=== PATIENT | female | born 1965 | race Caucasian/White ===

== ENCOUNTER → 2016-09-04 | Outpatient (CLI) | payer BC ==
[2016-09-04 15:23] VITALS: BP 125/75; PULSE 71; RESP 14; TEMP 97.1; BMI 39.8
--- NOTE | 2016-09-04 16:28 | P.HPBAR ---
Bariatric H&P - History & Physicial H&P Date: 09/04/16 History & Physicial: Visit/CC: bariatric consult Patient initial contact: Initial weight: 105.324 kg Initial weight in pounds: 232.20 Height: 5 ft 4 in Initial BMI: 39.8 Last weight: Current weight: 105.324 kg Current weight in pounds: 232.20 Current BMI: 39.8 [place] body weight (based on NIH guidelines): 54.431 kg Excess body weight loss: 0.0% The patient is a 51 year-old F who presents for Bariatric Assessment. The patient rents today for sleeve gastrectomy constipation. She has had lifetime problems obesity. Her BMI is 40. Past Medical History Past Medical History: Asthma, Hyperlipidemia, Osteoarthritis (OA), Sleep Apnea/ CPAP/BIPAP Additional Past Medical History / Comment(s): degenerative disk disease, sleep apnea (uses C-PAP), hyperlipidemia does not take written Rx because it caused muscle aches, kidney stones, History of Any Multi-Drug Resistant Organisms: None Reported Past Surgical History: Back Surgery, Orthopedic Surgery Additional Past Surgical History / Comment(s): Partial Right knee replacement 2013, synovial cyst on spine led to lower back surgery in November 2015 where bone spurs were removed and 2 bulging discs repaired, x1 (1993), kidney stones removed 2000, rectal polyps removed as a child. Additional Past Anesthesia/Blood Transfusion Reaction / Comm: states that when she had a nerve block for knee replacement the nerve block placed in her groin only lasted 3 hours and she was told that she metabolized the drug too quickly as it should have lasted at least 18 hours. When she had her back surgery in 2015 she did not have any problems. Past Psychological History: Depression Additional Psychological History / Comment(s): takes 50 mg of zoloft daily Smoking Status: Never smoker Past Alcohol Use History: None Reported, Occasional Past Drug Use History: None Reported - Past Family History Father Family Medical History: Cancer, Diabetes Mellitus, Hyperlipidemia, Hypertension Additional Family Medical History / Comment(s): Has had T-Cell leukemia "for years" , Type 2 DM, Mother Family Medical History: CVA/TIA, Hyperlipidemia, Hypertension, Osteoarthritis ( OA) Additional Family Medical History / Comment(s): degenerative disc disease Surgical - Exam Vital Signs Temp Pulse Resp BP 97.1 F L 71 14 125/75 09/04/16 14:55 09/04/16 14:55 09/04/16 14:55 09/04/16 14:55 BMI 40 - General well developed, no distress - Eyes PERRL - ENT normal pinna - Neck no masses - Respiratory normal expansion - Cardiovascular Rhythm: regular - Abdomen Abdomen: soft, non tender Bariatric Assessment & Plan Plan: Morbid obesity with severe comorbidities. The my 40. Patient will be scheduled for EGD. She will be authorized for sleeve gastrectomy Bariatric Checklist Checklist: Plan: Checklist: EGD: 1. Hiatal hernia: 2. H. Pylori: HgbA1c: Vitamin D: Smoking: Never smoker Primary care physician referral: alma laughlin Psychiatry clearance: Cardiology clearance: Sleep study: Diet journal: VTE risk score: VTE risk level: Rehab needs at discharge:
[2016-09-04 16:40] LABS: EKG EKG PERFORMED
[2016-09-04 17:06] LABS: CH 29.6; CHCM 32.3; HCT 38.4 % (34.0-46.0); HDW 3.05; HGB 12.3 gm/dL (11.4-16.0); Hypochromasia Slight; Iron 50 ug/dL (37-170); MCH 29.5 pg (25.0-35.0); MCV 92.1 fL (80.0-100.0); Mean Platelet Volume 6.8; RBC 4.16 m/uL (3.80-5.40); RDW 15.8 % (11.5-15.5); WBC 8.3 k/uL (3.8-10.6)
[2016-09-04 17:15] LABS: % Iron Saturation 15.2 % (20-50); Total Iron Binding Capacity 328 ug/dL (265-497)
== END | disposition home or self-care (01) ==
LOC: BARWHC3 14:08
PROVIDERS: ATTEND Surgery
DX: Z01.818 Encounter for other preprocedural examination (principal); E66.01 Morbid (severe) obesity due to excess calories; Z68.39 Body mass index [BMI] 39.0-39.9, adult; G47.33 Obstructive sleep apnea (adult) (pediatric); Z99.89 Dependence on other enabling machines and devices; K59.09 Other constipation; F32.9 Major depressive disorder, single episode, unspecified; Z79.899 Other long term (current) drug therapy
CPT/HCPCS: 82306; 82728; 83540; 83550; 84443; 85027; 93005; 99201

== ENCOUNTER 2016-09-22 10:39 | Day surgery (SDC) | payer BC ==
[2016-09-19 14:30] VITALS: BMI 39.8
[~2016-09-22 10:39] MED LIST: LACTATED RINGERS 1,000 ML IV SCH
[2016-09-22 11:57] VITALS: RESP 16; TEMP 98
[2016-09-22] MEDS ORDERED: LIDOCAINE 1% 20 ML VIAL (10MG/ML) FOR IV START INTRADERMA ONE (12:19)
[2016-09-22] MEDS ORDERED: LIDOCAINE 1% INJ 10MG/ML (20 ML MDV) ONE (12:58)
[2016-09-22] MEDS ORDERED: PROPOFOL 10 MG/ML 20 ML VIAL IV ONE (12:58)
--- NOTE | 2016-09-22 13:02 | P.GSHP ---
History of Present Illness H&P Date: 09/22/16 Chief Complaint: GERD This a 51-year-old female who presents today for EGD. Patient's had long- standing problems reflux esophagitis. Patient is morbidly obese with a BMI 40. She is also undergoing workup for sleeve gastrectomy. - Constitutional Constitutional: Reports as per HPI Past Medical History Past Medical History: Asthma, Hyperlipidemia, Musculoskeletal Disorder, Osteoarthritis (OA), Sleep Apnea/CPAP/BIPAP Additional Past Medical History / Comment(s): DDD, sleep apnea (uses C-PAP), kidney stones, Hayfever. History of Any Multi-Drug Resistant Organisms: None Reported Past Surgical History: Back Surgery, Orthopedic Surgery Additional Past Surgical History / Comment(s): Partial Right knee replacement 2013, synovial cyst on spine led to lower back surgery in November 2015 where bone spurs were removed and 2 bulging discs repaired, x1, kidney stones removed 2000, rectal polyps removed as a child. Past Anesthesia/Blood Transfusion Reactions: No Reported Reaction, Motion Sickness Additional Past Anesthesia/Blood Transfusion Reaction / Comment(s): states that when she had a nerve block for knee replacement the nerve block placed in her groin only lasted 3 hours and she was told that she metabolized the drug too quickly as it should have lasted at least 18 hours. When she had her back surgery in 2015 she did not have any problems. , Mother has difficulty waking up. Past Psychological History: Depression Additional Psychological History / Comment(s): . Smoking Status: Never smoker Past Alcohol Use History: Occasional Past Drug Use History: None Reported - Past Family History Father Family Medical History: Cancer, Diabetes Mellitus, Hyperlipidemia, Hypertension Additional Family Medical History / Comment(s): Has had T-Cell leukemia "for years" , Type 2 DM, Mother Family Medical History: CVA/TIA, Hyperlipidemia, Hypertension, Osteoarthritis ( OA) Additional Family Medical History / Comment(s): degenerative disc disease Medications and Allergies Home Medications Medication Instructions Recorded Confirmed Type Cetirizine HCl [Zyrtec] 10 mg PO DAILY 09/01/16 09/22/16 History HYDROcodone/APAP 7.5-325MG [[place] 1 tab PO Q6HR PRN 09/01/16 09/22/16 History 7.5-325] Naproxen [Naprosyn] 500 mg PO Q12HR PRN 09/01/16 09/22/16 History Sertraline [Zoloft] 50 mg PO DAILY 09/01/16 09/22/16 History Multivitamin [Multivitamins Adult 1 each PO DAILY 09/04/16 09/22/16 History Gummies] Turmeric Root Extract [Turmeric] 500 mg PO DAILY 09/04/16 09/22/16 History Acetaminophen Tab [Tylenol Tab] 650 mg PO DIRECTED PRN 09/19/16 09/22/16 History Albuterol Inhaler [Ventolin Hfa 1 - 2 puff INHALATION Q6HR PRN MDD 09/19/16 History Inhaler] S Fluticasone/Salmeterol [Advair 1 inhalation PO DIRECTED 09/19/16 09/22/16 History 250-50 Diskus] [place]-3 Fatty Acids/Fish Oil [Fish 1 each PO DAILY 09/19/16 09/22/16 History Oil 1,000 mg Softgel] Allergies Allergy/AdvReac Type Severity Reaction Status Date / Time amoxicillin [From Augmentin] AdvReac Vomiting Verified 09/22/16 12:00 clavulanic acid AdvReac Vomiting Verified 09/22/16 12:00 [From Augmentin] Surgical - Exam Vital Signs Temp Pulse Resp BP Pulse Ox 98.0 F 69 16 116/61 100 09/22/16 11:49 09/22/16 11:49 09/22/16 11:49 09/22/16 11:49 09/22/16 11:49 - General well developed, no distress - Eyes PERRL - ENT normal pinna - Neck no masses - Respiratory normal expansion - Cardiovascular Rhythm: regular - Abdomen Abdomen: soft, non tender Assessment and Plan Plan: GERD. We'll perform EGD.
--- NOTE | 2016-09-22 13:15 | P.OP ---
Date of Procedure: 09/22/16 Preoperative Diagnosis: GERD Morbid obesity Postoperative Diagnosis: Mild antral gastritis Minimal hiatal hernia Esophageal biopsy minimal esophagitis Procedure(s) Performed: EGD Anesthesia: MAC Surgeon: Simon Huitron Pathology: other (Antrum, esophagus) Condition: stable Disposition: PACU Description of Procedure: The patient's placed on the endoscopy table in the lateral position. She received IV sedation. The gastroscope placed oropharynx and passed into the esophagus and into the stomach. Scope was then passed into the duodenum. The first and second portion of the duodenum. Normal. Scope was then brought back the antrum this appeared mildly inflamed. A biopsies performed. Scope was then retroflexed and remainder stomach appeared normal. There was a small hiatal hernia. The GE junction was at 40 cm. The distal esophagus appeared mildly inflamed a biopsies performed. The proximal esophagus appeared normal. The scope was then withdrawn from the patient.
[2016-09-22 13:31] VITALS: BP 109/56; PULSE 71
== END 2016-09-22 13:55 | disposition home or self-care (01) ==
LOC: ORWHC2ENDO 10:39
PROVIDERS: ATTEND Surgery
DX: K21.0 Gastro-esophageal reflux disease with esophagitis (principal); K29.50 Unspecified chronic gastritis without bleeding; B96.81 Helicobacter pylori [H. pylori] as the cause of diseases classified elsewhere; K44.9 Diaphragmatic hernia without obstruction or gangrene; E78.5 Hyperlipidemia, unspecified; J45.909 Unspecified asthma, uncomplicated; M19.90 Unspecified osteoarthritis, unspecified site; G47.33 Obstructive sleep apnea (adult) (pediatric); F32.9 Major depressive disorder, single episode, unspecified; E66.01 Morbid (severe) obesity due to excess calories; Z68.41 Body mass index [BMI] 40.0-44.9, adult; Z88.1 Allergy status to other antibiotic agents; Z79.1 Long term (current) use of non-steroidal anti-inflammatories (NSAID); Z79.51 Long term (current) use of inhaled steroids; Z79.899 Other long term (current) drug therapy
CPT/HCPCS: 43239; 88305; 88342; J2001; J2704

== ENCOUNTER → 2016-10-02 | Outpatient (CLI) | payer BC ==
[2016-10-02 15:18] VITALS: BP 134/61; PULSE 69; TEMP 98.3; BMI 39.6
--- NOTE | 2016-10-02 15:32 | P.HPBAR ---
Bariatric H&P - History & Physicial H&P Date: 10/02/16 History & Physicial: Visit/CC: follow up visit to discuss egd result Patient initial contact: Initial weight: 105.324 kg Initial weight in pounds: 232.20 Height: 5 ft 4 in Initial BMI: 39.8 Last weight: Current weight: 104.644 kg Current weight in pounds: 230.70 Current BMI: 39.6 [place] body weight (based on NIH guidelines): 54.431 kg Excess body weight loss: 1.3% The patient is a 51 year-old F who presents for Bariatric Assessment. Patient' s had her EGD report reviewed. She is evidence of H. pylori. She states she feels well. Has no abdominal complaints. Past Medical History Past Medical History: Asthma, Hyperlipidemia, Musculoskeletal Disorder, Osteoarthritis (OA), Sleep Apnea/CPAP/BIPAP Additional Past Medical History / Comment(s): DDD, sleep apnea (uses C-PAP), kidney stones, Hayfever. History of Any Multi-Drug Resistant Organisms: None Reported Past Surgical History: Back Surgery, Orthopedic Surgery Additional Past Surgical History / Comment(s): Partial Right knee replacement 2013, synovial cyst on spine led to lower back surgery in November 2015 where bone spurs were removed and 2 bulging discs repaired, x1, kidney stones removed 2000, rectal polyps removed as a child. Past Anesthesia/Blood Transfusion Reactions: No Reported Reaction, Motion Sickness Additional Past Anesthesia/Blood Transfusion Reaction / Comm: states that when she had a nerve block for knee replacement the nerve block placed in her groin only lasted 3 hours and she was told that she metabolized the drug too quickly as it should have lasted at least 18 hours. When she had her back surgery in 2015 she did not have any problems. , Mother has difficulty waking up. Past Psychological History: Depression Additional Psychological History / Comment(s): . Smoking Status: Never smoker Past Alcohol Use History: Occasional Past Drug Use History: None Reported - Past Family History Father Family Medical History: Cancer, Diabetes Mellitus, Hyperlipidemia, Hypertension Additional Family Medical History / Comment(s): Has had T-Cell leukemia "for years" , Type 2 DM, Mother Family Medical History: CVA/TIA, Hyperlipidemia, Hypertension, Osteoarthritis ( OA) Additional Family Medical History / Comment(s): degenerative disc disease Surgical - Exam Vital Signs Temp Pulse BP 98.3 F 69 134/61 10/02/16 15:13 10/02/16 15:13 10/02/16 15:13 - General well developed, no distress - Eyes PERRL - ENT normal pinna - Neck no masses - Respiratory normal expansion - Cardiovascular Rhythm: regular - Abdomen Abdomen: soft, non tender Bariatric Assessment & Plan Plan: Patient was given a prescription for Prevpac. She is still awaiting insurance authorization for her gastric sleeve. Patient has a good understanding of sleeve gastrectomy. We went over the risks and benefits of the procedure. Patient will follow-up in one month. Bariatric Checklist Checklist: Plan: Checklist: EGD: 1. Hiatal hernia: 2. H. Pylori: HgbA1c: Vitamin D: Smoking: Never smoker Primary care physician referral: alma laughlin Psychiatry clearance: Cardiology clearance: Sleep study: Diet journal: VTE risk score: VTE risk level: Rehab needs at discharge:
== END | disposition home or self-care (01) ==
LOC: BARWHC3 14:30
PROVIDERS: ATTEND Surgery
DX: Z01.818 Encounter for other preprocedural examination (principal); G47.30 Sleep apnea, unspecified; Z99.89 Dependence on other enabling machines and devices; Z68.39 Body mass index [BMI] 39.0-39.9, adult; A48.8 Other specified bacterial diseases
CPT/HCPCS: 99211

== ENCOUNTER → 2016-10-23 | Outpatient (CLI) | payer BC ==
[2016-10-23 11:59] VITALS: BMI 40.1
== END | disposition home or self-care (01) ==
LOC: BARWHC3 08:43
PROVIDERS: ATTEND Surgery
DX: E66.01 Morbid (severe) obesity due to excess calories (principal)
CPT/HCPCS: 97804

== ENCOUNTER 2016-11-22 07:45 | Inpatient (IN) | payer BC ==
[~2016-11-22 07:45] MED LIST changes: +DEXAMETHASONE SOD PHOSPHATE 10 MG/ML 1 ML VIAL IV ONE; +ENOXAPARIN 40 MG/0.4 ML SYRINGE SQ ONE; -LACTATED RINGERS 1,000 ML IV SCH; +MIDAZOLAM 2 MG/2 ML VIAL IV PRN; +ONDANSETRON 4 MG/2 ML VIAL IVP ONE; +SCOPOLAMINE 1.5MG/72HR PATCH TRANSDERM ONE; +ceFAZolin 2 GM in SODIUM CHLORIDE 0.9% 100 ML IVPB ONE
[2016-11-22] MEDS ORDERED: ACETAMINOPHEN IV (For NPO) 1,000 MG in SALINE 1 100ML.BAG IVPB STA (10:24)
--- NOTE | 2016-11-22 10:26 | P.GSHP ---
History of Present Illness H&P Date: 11/22/16 Chief Complaint: Morbid obesity This a 51-year-old female who presents today for laparoscopic sleeve gastrectomy. Patient's had lifetime problems obesity. She has developed severe : Bradycardia is related to morbid obesity. Patient is aware the risks of surgery including conversion to the open procedure and injury to the stomach, liver and spleen. She is also aware the risk of gastric staple line disruption , bleeding perforation - Constitutional Constitutional: Reports as per HPI Past Medical History Past Medical History: Asthma, Hyperlipidemia, Musculoskeletal Disorder, Osteoarthritis (OA), Sleep Apnea/CPAP/BIPAP Additional Past Medical History / Comment(s): DDD, sleep apnea (uses C-PAP), kidney stones., Back and Knee pain. History of Any Multi-Drug Resistant Organisms: None Reported Past Surgical History: Back Surgery, Orthopedic Surgery Additional Past Surgical History / Comment(s): Partial Right knee replacement 2013, synovial cyst on spine led to lower back surgery in November 2015 where bone spurs were removed and 2 bulging discs repaired, , kidney stones removed 2000, rectal polyps removed as a child. Past Anesthesia/Blood Transfusion Reactions: Motion Sickness Additional Past Anesthesia/Blood Transfusion Reaction / Comment(s): states that when she had a nerve block for knee replacement the nerve block placed in her groin only lasted 3 hours and she was told that she metabolized the drug too quickly as it should have lasted at least 18 hours. When she had her back surgery in 2015 she did not have any problems. , Mother has difficulty waking up. Past Psychological History: Anxiety, Depression Additional Psychological History / Comment(s): . Smoking Status: Never smoker Past Alcohol Use History: Occasional Past Drug Use History: None Reported - Past Family History Father Family Medical History: Cancer, Diabetes Mellitus, Hyperlipidemia, Hypertension Additional Family Medical History / Comment(s): Has had T-Cell leukemia "for years" , Type 2 DM, Mother Family Medical History: CVA/TIA, Hyperlipidemia, Hypertension, Osteoarthritis ( OA) Additional Family Medical History / Comment(s): degenerative disc disease Medications and Allergies Home Medications Medication Instructions Recorded Confirmed Type Cetirizine HCl [Zyrtec] 10 mg PO DAILY 09/01/16 11/22/16 History HYDROcodone/APAP 7.5-325MG [[place] 1 tab PO Q6HR PRN 09/01/16 11/22/16 History 7.5-325] Naproxen [Naprosyn] 500 mg PO Q12HR PRN 09/01/16 11/22/16 History Sertraline [Zoloft] 50 mg PO DAILY 09/01/16 11/22/16 History Multivitamin [Multivitamins Adult 1 each PO DAILY 09/04/16 11/22/16 History Gummies] Turmeric Root Extract [Turmeric] 500 mg PO DAILY 09/04/16 11/22/16 History Albuterol Inhaler [Ventolin Hfa 1 - 2 puff INHALATION Q6HR PRN 09/19/16 History Inhaler] Fluticasone/Salmeterol [Advair 1 inhalation PO BID 09/19/16 11/22/16 History 250-50 Diskus] [place]-3 Fatty Acids/Fish Oil [Fish 1 each PO DAILY 09/19/16 11/22/16 History Oil 1,000 mg Softgel] Calcium With Vitamin D 1 tab PO DAILY 11/20/16 11/22/16 History Iron With Vitamin C 1 tab PO DAILY 11/20/16 11/22/16 History Vitamin B-12 Nasal [place] 500 mcg INHALATION DAILY 11/20/16 11/22/16 History Allergies Allergy/AdvReac Type Severity Reaction Status Date / Time amoxicillin [From Augmentin] AdvReac Vomiting Verified 11/22/16 10:13 clavulanic acid AdvReac Vomiting Verified 11/22/16 10:13 [From Augmentin] Surgical - Exam Vital Signs Temp Pulse Resp BP Pulse Ox 97.5 F L 73 16 104/63 98 11/22/16 10:21 11/22/16 10:21 11/22/16 10:21 11/22/16 10:21 11/22/16 10:21 - General well developed, no distress - Eyes PERRL - ENT normal pinna - Neck no masses - Respiratory normal expansion - Cardiovascular Rhythm: regular - Abdomen Abdomen: soft, non tender Assessment and Plan Plan: Morbid obesity. We'll perform laparoscopic sleeve gastrectomy
[2016-11-22] MEDS ORDERED: LIDOCAINE 1% 20 ML VIAL (10MG/ML) FOR IV START INTRADERMA ONE (10:31)
[2016-11-22] MEDS: LACTATED RINGERS 1,000 ML IV SCH (10:31)
[2016-11-22] MEDS ORDERED: SUCCINYLCHOLINE CHLORIDE 100 MG/5 ML SYR IV ONE (11:06)
[2016-11-22] MEDS ORDERED: NEOSTIGMINE 1 MG/ML 10 ML VIAL ONE (11:06)
[2016-11-22] MEDS ORDERED: MIDAZOLAM 2 MG/2 ML VIAL ONE (11:06)
[2016-11-22] MEDS ORDERED: LIDOCAINE 1% INJ 10MG/ML (20 ML MDV) ONE (11:06)
[2016-11-22] MEDS ORDERED: HYDROmorphone (PF) 1 MG/ML ONE (11:06)
[2016-11-22] MEDS ORDERED: GLYCOPYRROLATE 0.2 MG/ML 2 ML VIAL ONE (11:06)
[2016-11-22] MEDS ORDERED: PROPOFOL 10 MG/ML 20 ML VIAL IV ONE (11:06)
[2016-11-22] MEDS ORDERED: fentaNYL (PF) 50 MCG/ML 2 ML AMP ONE (11:06)
[2016-11-22] MEDS ORDERED: ROCURONIUM BROMIDE 10 MG/ML 10 ML VIAL IV ONE (11:06)
[2016-11-22] MEDS ORDERED: METHYLENE BLUE 15 MG in DEXTROSE 5% IN WATER 500 ML IRRIGATION ONE ×2 (11:24)
[2016-11-22] MEDS ORDERED: BUPIVACAIN-EPI 0.25%-1:200,000 30 ML VIAL SQ ONE ×2 (11:28)
[2016-11-22] MEDS ORDERED: ACETAMINOPHEN IV (For NPO) 1,000 MG/100 ML VIAL IV PRN (12:19)
[2016-11-22] MEDS ORDERED: NALOXONE 0.4 MG/ML 1 ML VIAL IV PRN (12:19)
[2016-11-22] MEDS ORDERED: LACTATED RINGERS 1,000 ML IV ONE (12:20)
--- NOTE | 2016-11-22 12:24 | P.OP ---
Date of Procedure: 11/22/16 Preoperative Diagnosis: Morbid obesity BMI 37 Postoperative Diagnosis: Morbid obesity Procedure(s) Performed: Laparoscopic sleeve gastrectomy Laparoscopic repair of hiatal hernia Anesthesia: LOIS Surgeon: Simon Huitron Estimated Blood Loss (ml): 10 Pathology: other (Gastric remnant) Condition: stable Disposition: PACU Description of Procedure: The patient was placed on the operating room table in the supine position. She received general anesthesia and then was placed in dorsal lithotomy position. Her abdomen was prepped and draped in sterile fashion. The skin incision sites were anesthetized 1% local Xylocaine. And then the skin was incised with an 11 blade in the left lateral position. Using a blade less trocar under direct visualization the peritoneal cavity was entered. The abdomen was insufflated and then a 5 mm laparoscope was placed into the peritoneal cavity. A 5 mm trocar was placed in the right epigastric, and right lateral position. A 15 mm trocar was placed in the supra-umbilical position and another 5 mm trocar was placed in the left lateral position. The left lateral lobe of the liver was retracted. The stomach was visualized. The greater curvature of the stomach was then dissected using the Harmonic scissors. The hiatus was dissected. There appeared to be a hiatal hernia. After the hiatus was dissected the hiatal hernia was repaired using 2-0 Ethibond suture in the retroesophageal position. The dissection occurred approximately 5 cm from the pylorus to the level of the left cindy. There was no hiatal hernia seen. At this point a 40- Thai bougie dilator was placed the oropharynx and passed into the esophagus and into the stomach by the FILLER MACHINE OPERATOR. The sleeve gastrectomy was performed by using the powered echelon stapler with a seam guard buttress material. Sequential firings of the stapler were performed. The gastric remnant was then brought out through the 15 mm trocar site. The dilator was withdrawn. And a orogastric tube was replaced into the stomach. The stomach was insufflated with 200 mL of methylene blue normal saline. There was no evidence of extravasation. The abdomen was irrigated there is no bleeding seen. The Saúl -Georgiana device was used to close the 15 mm trocar with 0 Vicryl. Skin was closed with interrupted 3-0 Monocryl sutures once the trochars withdrawn. Dermabond dressing was applied. Patient was sent to recovery in stable condition.
[2016-11-22] MEDS: HYDROmorphone 1 MG/ML 1 ML SYRINGE IVP PRN ×4 (13:05→22:47)
[2016-11-22 13:17] VITALS: RESP 16
[2016-11-22] MEDS ORDERED: ALBUTEROL NEBULIZED 2.5 MG/3 ML INHALATION PRN (14:10)
[2016-11-22] MEDS: 0.9% NACL WITH KCL 20 MEQ/L 1,000 ML IV SCH ×2 (15:05→22:34)
[2016-11-22 15:18] VITALS: BMI 37.1
[2016-11-22] MEDS: ALBUTEROL NEBULIZED 2.5 MG/3 ML INHALATION SCH ×2 (15:27→19:42)
[2016-11-22] MEDS: KETOROLAC 30 MG/ML 1 ML VIAL IVP SCH (18:15)
[2016-11-22] MEDS: SYMBICORT 80-4.5 MCG INHALER INHALATION SCH (19:51)
[2016-11-22] MEDS: ACETAMINOPHEN IV (For NPO) 1,000 MG in EMPTY BAG 1 BAG IVPB PRN (20:35)
[2016-11-23] MEDS: KETOROLAC 30 MG/ML 1 ML VIAL IVP SCH ×3 (00:42→14:23)
[2016-11-23 02:14] VITALS: TEMP 98.1
[2016-11-23] MEDS: LACTATED RINGERS 1,000 ML IV SCH (03:22)
[2016-11-23] MEDS: 0.9% NACL WITH KCL 20 MEQ/L 1,000 ML IV SCH (03:33)
[2016-11-23] MEDS: ACETAMINOPHEN IV (For NPO) 1,000 MG in EMPTY BAG 1 BAG IVPB PRN (04:07)
[2016-11-23] MEDS: HYDROmorphone 1 MG/ML 1 ML SYRINGE IVP PRN (04:16)
[2016-11-23 07:24] LABS: Basophils % (A) 0 %; CHCM 32.7; Eosinophils % (A) 0 %; HCT 33.3 % (34.0-46.0); HDW 3.23; Luc % (Auto) 2; Lymphocytes # (A) 1.2 k/uL (1.0-4.8); Lymphocytes % (A) 20 %; MCH 30.4 pg (25.0-35.0); MCV 92.2 fL (80.0-100.0); Mean Platelet Volume 6.9; Monocytes # (A) 0.3 k/uL (0-1.0); Monocytes % (A) 5 %; Neutrophils # (A) 4.3 k/uL (1.3-7.7); Neutrophils % (A) 73 %; RBC 3.61 m/uL (3.80-5.40); RDW 15.6 % (11.5-15.5); WBC 5.9 k/uL (3.8-10.6); WBC (Perox) 5.87
[2016-11-23 07:45] LABS: Anion Gap 10 mmol/L; Blood Urea Nitrogen 11 mg/dL (7-17); Calcium 8.6 mg/dL (8.4-10.2); Carbon Dioxide 18 mmol/L (22-30); Chloride 112 mmol/L (98-107); Magnesium 1.8 mg/dL (1.6-2.3); Non-African American GFR(MDRD) >60 (>60 ml/min/1.73 sqM); Phosphorous 3.4 mg/dL (2.5-4.5); Potassium 4.6 mmol/L (3.5-5.1); Sodium 140 mmol/L (137-145)
[2016-11-23] MEDS: ALBUTEROL NEBULIZED 2.5 MG/3 ML INHALATION SCH ×3 (08:26→15:44)
[2016-11-23] MEDS: SYMBICORT 80-4.5 MCG INHALER INHALATION SCH (08:27)
[2016-11-23] MEDS ORDERED: ACETAMINOPHEN IV (For NPO) 1,000 MG in EMPTY BAG 1 BAG IVPB ONE (09:00)
[2016-11-23] MEDS ORDERED: ENOXAPARIN 40 MG/0.4 ML SYRINGE SQ SCH (09:00)
[2016-11-23] MEDS ORDERED: SERTRALINE 50 MG TAB PO SCH (09:00)
[2016-11-23] MEDS ORDERED: LORATADINE 10 MG TAB PO SCH (09:00)
[2016-11-23] MEDS: HYDROcodone/APAP 7.5-325MG 1 EACH TAB PO PRN ×2 (10:15→16:15)
--- NOTE | 2016-11-23 11:18 | FL ---
EXAMINATION TYPE: FL UGI DATE OF EXAM: 11/23/2016 10:04 AM COMPARISON: NONE HISTORY: Post gastric sleeve TECHNIQUE: A single contrast UGI study is performed. FINDINGS: Contrast passes from the distal esophagus through the gastric sleeve with out significant h esitancy. No extravasation of contrast is evident. No free air is noted during this examination. Overhead radiographs were obtained which are unremarkable. IMPRESSIONS: 1. Normal post gastric sleeve without obstruction or hesitancy. No extravasation.
[2016-11-23 14:56] VITALS: BP 117/58
[2016-11-23 15:48] VITALS: PULSE 71
--- NOTE | 2016-11-23 18:03 | P.DS ---
Providers Date of admission: 11/22/16 09:48 Expected date of discharge: 11/23/16 Attending physician: Simon Huitron Consults: 11/22/16 13:00 Consult Physician Routine Consulting Provider: Jonathan Booth Consult Reason/Comments: Medical management Do you want consulting provider notified?: Yes Primary care physician: [facility] Hospital Course: Patient is a 51-year-old female with a medical history significant for morbid obesity having failed conservative treatment. Patient presented for elective laparoscopic sleeve gastrectomy. Patient also underwent laparoscopic repair of hiatal hernia. Patient tolerated procedure well. Upper GI series post surgery with no evidence of obstruction or leak. Patient had an uneventful postoperative recovery. Patient was deemed stable for discharge to home with close follow-up in the outpatient setting. Discharge diagnoses: 1. Morbid obesity status post laparoscopic sleeve gastrectomy. 2. Hiatal hernia status post laparoscopic hiatal hernia repair. The above impression and plan have been discussed and directed by Dr. Huitron. Martha CORDOVA acting as scribe for Dr. Huitron. Pertinent Studies: Upper GI series Procedures: Laparoscopic sleeve gastrectomy. Laparoscopic repair of hiatal hernia. Patient Condition at Discharge: Good Plan - Discharge Summary New Discharge Prescriptions: Docusate [Colace] 100 mg PO BID #20 capsule HYDROcodone/APAP 7.5-325MG [[place] 7.5-325] 1 tab PO Q6HR PRN #28 tab PRN Reason: Pain Ondansetron Odt [Zofran ODT] 8 mg PO Q8HR #20 tab Sucralfate [Carafate] 1 gm PO TID #90 tablet Discharge Medication List Cetirizine HCl [Zyrtec] 10 mg PO DAILY 09/01/16 [History] Sertraline [Zoloft] 50 mg PO DAILY 09/01/16 [History] Multivitamin [Multivitamins Adult Gummies] 1 tab PO DAILY 09/04/16 [History] Turmeric Root Extract [Turmeric] 500 mg PO DAILY 09/04/16 [History] Albuterol Inhaler [Ventolin Hfa Inhaler] 1 - 2 puff INHALATION RT-Q6H PRN [History] Fluticasone/Salmeterol [Advair 250-50 Diskus] 1 inhalation PO RT-BID 09/19/16 [ History] [place]-3 Fatty Acids/Fish Oil [Fish Oil 1,000 mg Softgel] 1 cap PO DAILY [History] Calcium With Vitamin D 1 tab PO DAILY 11/20/16 [History] Iron With Vitamin C 1 tab PO DAILY 11/20/16 [History] Vitamin B-12 Nasal [place] 500 mcg INHALATION DAILY 11/20/16 [History] Ondansetron Odt [Zofran ODT] 8 mg PO Q8HR #20 tab 11/22/16 [Rx] Sucralfate [Carafate] 1 gm PO TID #90 tablet 11/22/16 [Rx] Docusate [Colace] 100 mg PO BID #20 capsule 11/23/16 [Rx] HYDROcodone/APAP 7.5-325MG [[place] 7.5-325] 1 tab PO Q6HR PRN #28 tab 11/23/16 [ Rx] Omeprazole [PriLOSEC] 20 mg PO AC-BID #42 cap 11/23/16 [Rx] Follow up Appointment(s)/Referral(s): Troy Vázquez MD [Primary Care Provider] - 11/28/16 10:30 am Simon Huitron MD [STAFF PHYSICIAN] - 12/04/16 1:10 pm (In the bariatric center ) Patient Instructions/Handouts: Laparoscopic Sleeve Gastrectomy (DC) Activity/Diet/Wound Care/Special Instructions: No heavy lifting, pushing, or pulling items greater than 10 pounds. Bariatric diet as previously directed. No caffeinated beverages or straws. Shower daily, no soaking in bath tubs, pools, or hot tubs. No driving while taking pain medication. Notify surgeon with any signs or symptoms of infection, increased pain, or not tolerating diet. Discharge Disposition: HOME SELF-CARE
== END 2016-11-23 17:21 | disposition home or self-care (01) | DRG 621 ==
LOC: 2ORWHC 09:48 → 3SUR 12:26
PROVIDERS: ADMIT Surgery; ATTEND Surgery
PROC: 0BQS4ZZ (ICD-10-PCS; 2016-11-22)
PROC: 0BQR4ZZ (ICD-10-PCS; 2016-11-22)
PROC: 0DB64Z3 Excision of Stomach, Percutaneous Endoscopic Approach, Vertical (ICD-10-PCS; principal; 2016-11-22 12:05)
DX: E66.01 Morbid (severe) obesity due to excess calories (principal); R00.1 Bradycardia, unspecified; K44.9 Diaphragmatic hernia without obstruction or gangrene; G47.33 Obstructive sleep apnea (adult) (pediatric); J45.909 Unspecified asthma, uncomplicated; F32.9 Major depressive disorder, single episode, unspecified; E78.5 Hyperlipidemia, unspecified; M25.569 Pain in unspecified knee; M19.90 Unspecified osteoarthritis, unspecified site; M54.9 Dorsalgia, unspecified; F41.9 Anxiety disorder, unspecified; Z80.6 Family history of leukemia; Z83.3 Family history of diabetes mellitus; Z82.49 Family history of ischemic heart disease and other diseases of the circulatory system; Z68.37 Body mass index [BMI] 37.0-37.9, adult; Z79.899 Other long term (current) drug therapy; Z87.442 Personal history of urinary calculi; Z96.651 Presence of right artificial knee joint; Z88.1 Allergy status to other antibiotic agents; Z88.0 Allergy status to penicillin; Z87.19 Personal history of other diseases of the digestive system; Z79.1 Long term (current) use of non-steroidal anti-inflammatories (NSAID); Z79.891 Long term (current) use of opiate analgesic; Z79.51 Long term (current) use of inhaled steroids; Z71.3 Dietary counseling and surveillance; Z82.3 Family history of stroke
CPT/HCPCS: 74240; 80051; 82310; 82565; 83735; 84100; 84520; 85025; 88307; 88342; 94640; 94760; 94762

== ENCOUNTER → 2016-12-04 | Outpatient (CLI) | payer BC ==
[2016-12-04 13:25] VITALS: BP 107/62; PULSE 65; RESP 15; TEMP 97.9; BMI 36.1
--- NOTE | 2016-12-04 16:58 | P.HPBAR ---
Bariatric H&P - History & Physicial H&P Date: 12/04/16 History & Physicial: Visit/CC: sleeve f/u (11/22/16) Patient initial contact: Initial weight: 105.324 kg Initial weight in pounds: 232.20 Height: 5 ft 4 in Initial BMI: 39.8 Last weight: Current weight: 95.617 kg Current weight in pounds: 210.80 Current BMI: 36.1 [place] body weight (based on NIH guidelines): 54.431 kg Excess body weight loss: 19.0% The patient is a 51 year-old F who presents for Bariatric Assessment. Patient presents for sleeve gastrectomy fall. She is doing quite well. She states that she feels her restriction has slightly decreased. Past Medical History Past Medical History: Asthma, Hyperlipidemia, Osteoarthritis (OA), Sleep Apnea/ CPAP/BIPAP Additional Past Medical History / Comment(s): DDD, sleep apnea (uses C-PAP), kidney stones., Back and Knee pain. History of Any Multi-Drug Resistant Organisms: None Reported Past Surgical History: Back Surgery, Orthopedic Surgery Additional Past Surgical History / Comment(s): Partial Right knee replacement 2013, synovial cyst on spine led to lower back surgery in November 2015 where bone spurs were removed and 2 bulging discs repaired, , kidney stones removed 2000, rectal polyps removed as a child. Past Anesthesia/Blood Transfusion Reactions: Motion Sickness Additional Past Anesthesia/Blood Transfusion Reaction / Comm: states that when she had a nerve block for knee replacement the nerve block placed in her groin only lasted 3 hours and she was told that she metabolized the drug too quickly as it should have lasted at least 18 hours. When she had her back surgery in 2015 she did not have any problems. , Mother has difficulty waking up. Past Psychological History: Anxiety, Depression Additional Psychological History / Comment(s): . Smoking Status: Never smoker Past Alcohol Use History: Occasional Past Drug Use History: None Reported - Past Family History Father Family Medical History: Cancer, Diabetes Mellitus, Hyperlipidemia, Hypertension Additional Family Medical History / Comment(s): Has had T-Cell leukemia "for years" , Type 2 DM, Mother Family Medical History: CVA/TIA, Hyperlipidemia, Hypertension, Osteoarthritis ( OA) Additional Family Medical History / Comment(s): degenerative disc disease Surgical - Exam Vital Signs Temp Pulse Resp BP 97.9 F 65 15 107/62 12/04/16 13:08 12/04/16 13:08 12/04/16 13:08 12/04/16 13:08 - General well developed, no distress - Eyes PERRL - ENT normal pinna - Neck no masses - Respiratory normal expansion - Cardiovascular Rhythm: regular - Abdomen Abdomen: soft, non tender Bariatric Assessment & Plan Plan: Status post sleeve gastric and. Patient is able well. She'll follow-up in 2 weeks. Bariatric Checklist Checklist: Plan: Checklist: EGD: 1. Hiatal hernia: 2. H. Pylori: HgbA1c: Vitamin D: Smoking: Never smoker Primary care physician referral: alma laughlin Psychiatry clearance: Cardiology clearance: Sleep study: Diet journal: VTE risk score: VTE risk level: Rehab needs at discharge:
== END ==
LOC: BARWHC3 13:04
PROVIDERS: ATTEND Surgery
DX: Z48.815 Encounter for surgical aftercare following surgery on the digestive system (principal); Z98.84 Bariatric surgery status
CPT/HCPCS: 97803; 99211

== ENCOUNTER → 2017-01-01 | Outpatient (CLI) | payer BC ==
[2017-01-01 14:21] VITALS: PULSE 67; TEMP 98.3; BMI 33.6
--- NOTE | 2017-01-01 14:49 | P.HPBAR ---
Bariatric H&P - History & Physicial H&P Date: 01/01/17 History & Physicial: Visit/CC: six week follow up Patient initial contact: Initial weight: 105.324 kg Initial weight in pounds: 232.20 Height: 5 ft 4 in Initial BMI: 39.8 Last weight: Current weight: 88.904 kg Current weight in pounds: 196.00 Current BMI: 33.6 [place] body weight (based on NIH guidelines): 54.431 kg Excess body weight loss: 32.2% The patient is a 51 year-old F who presents for Bariatric Assessment. Patient presents for sleeve follow-up. She is doing quite well. She is lost approximately 15 pounds last visit. She has minimal GERD symptoms. Past Medical History Past Medical History: Asthma, Hyperlipidemia, Osteoarthritis (OA), Sleep Apnea/ CPAP/BIPAP Additional Past Medical History / Comment(s): DDD, sleep apnea (uses C-PAP), kidney stones., Back and Knee pain. History of Any Multi-Drug Resistant Organisms: None Reported Past Surgical History: Back Surgery, Orthopedic Surgery Additional Past Surgical History / Comment(s): Partial Right knee replacement 2013, synovial cyst on spine led to lower back surgery in November 2015 where bone spurs were removed and 2 bulging discs repaired, , kidney stones removed 2000, rectal polyps removed as a child. Past Anesthesia/Blood Transfusion Reactions: Motion Sickness Additional Past Anesthesia/Blood Transfusion Reaction / Comm: states that when she had a nerve block for knee replacement the nerve block placed in her groin only lasted 3 hours and she was told that she metabolized the drug too quickly as it should have lasted at least 18 hours. When she had her back surgery in 2015 she did not have any problems. , Mother has difficulty waking up. Past Psychological History: Anxiety, Depression Additional Psychological History / Comment(s): . Smoking Status: Never smoker Past Alcohol Use History: Occasional Past Drug Use History: None Reported - Past Family History Father Family Medical History: Cancer, Diabetes Mellitus, Hyperlipidemia, Hypertension Additional Family Medical History / Comment(s): Has had T-Cell leukemia "for years" , Type 2 DM, Mother Family Medical History: CVA/TIA, Hyperlipidemia, Hypertension, Osteoarthritis ( OA) Additional Family Medical History / Comment(s): degenerative disc disease Surgical - Exam Vital Signs Temp Pulse 98.3 F 67 01/01/17 14:19 01/01/17 14:19 - General well developed, no distress - Eyes PERRL - ENT normal pinna - Neck no masses - Respiratory normal expansion - Cardiovascular Rhythm: regular - Abdomen Abdomen: soft, non tender Bariatric Assessment & Plan Plan: Status post a gastric. Patient still quite well. Her GERD symptoms are minimal we be observed. She'll follow-up in one month. Bariatric Checklist Checklist: Plan: Checklist: EGD: 1. Hiatal hernia: 2. H. Pylori: HgbA1c: Vitamin D: Smoking: Never smoker Primary care physician referral: alma laughlin Psychiatry clearance: Cardiology clearance: Sleep study: Diet journal: VTE risk score: VTE risk level: Rehab needs at discharge:
== END | disposition home or self-care (01) ==
LOC: BARWHC3 14:18
PROVIDERS: ATTEND Surgery
DX: Z09 Encounter for follow-up examination after completed treatment for conditions other than malignant neoplasm (principal); E78.5 Hyperlipidemia, unspecified; M19.90 Unspecified osteoarthritis, unspecified site; J45.909 Unspecified asthma, uncomplicated; F41.9 Anxiety disorder, unspecified; F32.9 Major depressive disorder, single episode, unspecified; Z98.84 Bariatric surgery status
CPT/HCPCS: 97803; 99211

== ENCOUNTER → 2017-02-26 | Outpatient (CLI) | payer BC ==
[2017-02-26 14:07] VITALS: BP 143/76; PULSE 60; RESP 16; TEMP 98.5; BMI 31.4
--- NOTE | 2017-02-26 16:41 | P.HPBAR ---
Bariatric H&P - History & Physicial H&P Date: 02/26/17 History & Physicial: Visit/CC: sleeve follow-up Patient initial contact: Initial weight: 105.324 kg Initial weight in pounds: 232.20 Height: 5 ft 4 in Initial BMI: 39.8 Last weight: 196 Current weight: 83.036 kg Current weight in pounds: 183.00 Current BMI: 31.4 [place] body weight (based on NIH guidelines): 54.431 kg Excess body weight loss: 43.8% The patient is a 51 year-old F who presents for Bariatric Assessment. The patient presents today for sleeve gastrectomy fall. She feels quite well. She' s had some minimal GERD symptoms. Past Medical History Past Medical History: Asthma, Hyperlipidemia, Osteoarthritis (OA), Sleep Apnea/ CPAP/BIPAP Additional Past Medical History / Comment(s): DDD, sleep apnea (uses C-PAP), kidney stones., Back and Knee pain. History of Any Multi-Drug Resistant Organisms: None Reported Past Surgical History: Back Surgery, Orthopedic Surgery Additional Past Surgical History / Comment(s): Partial Right knee replacement 2013, synovial cyst on spine led to lower back surgery in November 2015 where bone spurs were removed and 2 bulging discs repaired, , kidney stones removed 2000, rectal polyps removed as a child. Past Anesthesia/Blood Transfusion Reactions: Motion Sickness Additional Past Anesthesia/Blood Transfusion Reaction / Comm: states that when she had a nerve block for knee replacement the nerve block placed in her groin only lasted 3 hours and she was told that she metabolized the drug too quickly as it should have lasted at least 18 hours. When she had her back surgery in 2015 she did not have any problems. , Mother has difficulty waking up. Smoking Status: Never smoker - Past Family History Father Family Medical History: Cancer, Diabetes Mellitus, Hyperlipidemia, Hypertension Additional Family Medical History / Comment(s): Has had T-Cell leukemia "for years" , Type 2 DM, Mother Family Medical History: CVA/TIA, Hyperlipidemia, Hypertension, Osteoarthritis ( OA) Additional Family Medical History / Comment(s): degenerative disc disease Surgical - Exam Vital Signs Temp Pulse Resp BP 98.5 F 60 16 143/76 02/26/17 14:04 02/26/17 14:04 02/26/17 14:04 02/26/17 14:04 - General well developed - Abdomen Abdomen: soft, non tender Bariatric Assessment & Plan Plan: The patient is doing quite well for weight loss. She will follow-up in one month. Her GERD symptoms will be observed. Bariatric Checklist Checklist: Plan: Checklist: EGD: 1. Hiatal hernia: 2. H. Pylori: HgbA1c: Vitamin D: Smoking: Never smoker Primary care physician referral: alma laughlin Psychiatry clearance: Cardiology clearance: Sleep study: Diet journal: VTE risk score: VTE risk level: Rehab needs at discharge:
== END | disposition home or self-care (01) ==
LOC: BARWHC3 13:37
PROVIDERS: ATTEND Surgery
DX: Z09 Encounter for follow-up examination after completed treatment for conditions other than malignant neoplasm (principal); E78.5 Hyperlipidemia, unspecified; J45.909 Unspecified asthma, uncomplicated; Z98.84 Bariatric surgery status
CPT/HCPCS: 99211